=== PATIENT | male | born 1995 | race Caucasian/White ===

== ENCOUNTER → 2016-06-24 | Outpatient (CLI) | payer BC, OTHER ==
[~2016-06-24] MED LIST: FLUT0.15 NAE; ONDA4TAB46 PO
--- NOTE | 2016-06-24 12:36 | DIAGNOSTIC IMAGING REPORT ---
LEFT ANKLE MIN 3 VIEWS CLINICAL HISTORY: LEFT ANKLE SPRAIN pain COMPARISON: None. DISCUSSION: The bones and joint spaces appear intact. There is no evidence of fracture, dislocation or bony disease. There is no evidence for soft tissue swelling. IMPRESSION: Negative study. Electronically signed by: Lawrence Hall M.D. 06/24/2016 12:34 PM Dictated Date/Time: 06/24/2016 12:34 PM
== END | disposition home or self-care (01) ==
LOC: C.RDSM 11:20
PROVIDERS: ATTEND Internal Medicine
DX: S93.402A Sprain of unspecified ligament of left ankle, initial encounter (principal); X58.XXXA Exposure to other specified factors, initial encounter